=== PATIENT | female | born 1995 | race Caucasian/White ===

== ENCOUNTER 2020-01-20 22:20 | Inpatient (IN) ==
[2020-01-20] MEDS ORDERED: BUTORPHANOL 2 MG/ML VIAL IV PRN (22:32)
[2020-01-20] MEDS ORDERED: MEPERIDINE 50 MG/1 ML VIAL IV PRN (22:32)
[2020-01-20] MEDS ORDERED: LACTATED RINGERS 1,000 ML IV SCH (23:00)
[2020-01-20 23:16] LABS: Basophils % 0.3 % (0.0-0.8); Eosinophils # 0.1 10*3/uL (0.0-0.87); Eosinophils % 0.4 % (0.00-10.9); Hematocrit 35.6 VOL% (35.7-47.0); Hemoglobin 11.8 GM/DL (12.0-16.0); Immature Granulocytes % 1.5 %; Lymphocytes # 2.6 10*3/uL (1.4-4.0); Lymphocytes % 19.4 % (21.3-54.2); Mean Corpuscular HGB Conc 33.1 GM/DL (32-36); Mean Corpuscular Volume 87.3 FL (87-102); Mean Platelet Volume 10.8 FL (9.6-12.0); Monocytes % 6.9 % (1.7-12.7); Neutrophils % 71.5 % (38.7-73.9); Platelet Count 254 T/CUMM (130-400); Red Blood Count 4.08 MC/CUMM (3.8-5.5); Red Cell Distribution Width 13.5 % (9.3-17.3); White Blood Count 13.5 T/CUMM (4-12)
[2020-01-20 23:31] LABS: Alanine Aminotransferase 20 U/L (13-56); Albumin 2.4 G/DL (3.4-5.0); Alkaline Phosphatase 192 U/L (45-117); Aspartate Amino Transferase 24 U/L (0-37); Bilirubin,Total < 0.39 MG/DL (0.2-1.0); Blood Urea Nitrogen 13 MG/DL (7-18); Calcium 9.1 MG/DL (8.5-10.1); Estimated Glom Filtration Rate 150 ML/MIN; Glucose 91 MG/DL (74-106); Osmolality,Calculated 276.5 MOS/KG (273-304); Total Protein 6.7 G/DL (6.4-8.3)
[2020-01-21] MEDS: ONDANSETRON 4 MG/2 ML VIAL IV PRN ×2 (03:35→13:57)
[2020-01-21] MEDS ORDERED: FAMOTIDINE 20 MG/2 ML VIAL IV PRN (03:55)
[2020-01-21] MEDS ORDERED: CITRIC ACID/SODIUM CITRATE 30 ML UDCUP PO PRN (03:55)
[2020-01-21] MEDS ORDERED: LACTATED RINGERS 1,000 ML IV ONE (03:55)
[2020-01-21] MEDS ORDERED: ePHEDrine 50 MG/ML VIAL IV PRN (03:55)
[2020-01-21] MEDS ORDERED: NALOXONE 0.4 MG/ML VIAL IV PRN (03:57)
[2020-01-21] MEDS ORDERED: hydrOXYzine HCL 25 MG/1 ML VIAL IM PRN (03:57)
[2020-01-21] MEDS ORDERED: diphenhydrAMINE 50 MG/1 ML VIAL IV PRN ×2 (03:57)
[2020-01-21] MEDS: fentaNYL 2 MCG/ROPIV 0.2% EPID 100 ML EPIDURAL SCH ×2 (05:43→12:24)
[2020-01-21] MEDS ORDERED: OXYTOCIN/LR 20 UNIT/1,000 ML BAG IV ONE ×2 (07:26→14:12)
[2020-01-21 07:42] LABS: Bilirubin,Urine Negative (Negative); Blood, Urine Small mg/dL (Negative); Glucose,Urine (UA) Negative (Negative); Ketones,Urine Negative (Negative); Mucus,Urine Occasional /LPF (Occasional); Nitrite,Urine Negative (Negative); Protein,Urine >=500 MG/DL; RBC,Urine 20 /HPF (0-4); Squamous Epithelial Cell,Urine Occasional /HPF (0-10); Urine Appearance CLEAR (Clear); Urine Color Yellow (Yellow); Urine Specific Gravity 1.016 (1.001-1.035); Urine Urobilinogen < 2.0 EU/DL (0.2-1.0); WBC,Urine 1 /HPF (0-6)
[2020-01-21] MEDS ORDERED: OXYTOCIN/LR 20 UNIT/1,000 ML BAG IV SCH (08:00)
[2020-01-21] MEDS ORDERED: miSOPROStoL 200 MCG TABLET ONE (09:49)
[2020-01-21] MEDS ORDERED: METHYLERGONOVINE 0.2 MG/1 ML AMP ONE (09:50)
[2020-01-21] MEDS ORDERED: CARBOPROST TROMETHAMINE 250 MCG/ML AMP IM ONE ×2 (09:50→13:42)
[2020-01-21] MEDS ORDERED: TRANEXAMIC ACID 1,000 MG/10 ML VIAL ONE (09:50)
[2020-01-21] MEDS ORDERED: SODIUM CHLORIDE 0.9% 0 ML IV ONE (09:51)
[2020-01-21] MEDS ORDERED: LIDOCAINE 1% 50 ML VIAL ONE ×2 (09:51→16:53)
[2020-01-21] MEDS ORDERED: miSOPROStoL 200 MCG TABLET RECTAL ONE (13:30)
[2020-01-21 13:34] LABS: Cord Arterial Blood HCO3 20.7 MMOL/L
[2020-01-21 13:36] LABS: Cord Venous Blood HCO3 20.9 MMOL/L; Cord Venous Blood PCO2 53.1 MMHG
[2020-01-21] MEDS ORDERED: IBUPROFEN 800 MG TABLET PO ONE (13:55)
[2020-01-21] MEDS ORDERED: LANOLIN 50% CREAM 0.3 OZ TUBE TOP PRN (14:12)
[2020-01-21] MEDS ORDERED: ACETAMINOPHEN 325 MG TABLET PO PRN (14:12)
[2020-01-21] MEDS ORDERED: MEASLES/MUMPS/RUBELLA VACCINE 0.5 ML VIAL SUBCUT ONE (14:12)
[2020-01-21] MEDS ORDERED: BISACODYL 10 MG SUPP RECTAL PRN (14:12)
[2020-01-21] MEDS ORDERED: DIPH/TET/ACEL PERT BOOSTER VACCINE 0.5 ML VIAL IM ONE (14:12)
[2020-01-21] MEDS ORDERED: RHO(D) IMMUNE GLOBULIN 300 MCG SYRINGE IM ONE (14:12)
[2020-01-21] MEDS ORDERED: oxyCODONE/ACETAMINOPHEN 5-325 MG TABLET PO PRN (14:12)
[2020-01-21] MEDS ORDERED: HYDROCORTISONE 2.5% RECTAL CREAM 30 GM TUBE TOP PRN (14:12)
[2020-01-21] MEDS ORDERED: BENZOCAINE 20%/MENTHOL 0.5% SPRAY 56 GM CAN TOP PRN (14:12)
[2020-01-21] MEDS ORDERED: ONDANSETRON 4 MG/2 ML VIAL IV PRN (14:12)
[2020-01-21] MEDS ORDERED: WITCH HAZEL PADS 100/JAR TOP PRN (14:12)
[2020-01-21] MEDS ORDERED: HETASTARCH 6% 500 ML IV ONE (15:57)
[2020-01-21] MEDS: DOCUSATE SODIUM 100 MG CAPSULE PO SCH (21:00)
[2020-01-21] MEDS: IBUPROFEN 800 MG TABLET PO PRN (22:23)
[2020-01-22] MEDS: oxyCODONE/ACETAMINOPHEN 5-325 MG TABLET PO PRN ×4 (04:44→22:19)
[2020-01-22 06:02] LABS: Basophils % 0.2 % (0.0-0.8); Eosinophils # 0.1 10*3/uL (0.0-0.87); Hemoglobin 6.7 GM/DL (12.0-16.0); Immature Granulocytes % 0.8 %; Immature Granulocytes Absolute 0.11 #; Lymphocytes # 2.7 10*3/uL (1.4-4.0); Lymphocytes % 20.7 % (21.3-54.2); Mean Corpuscular HGB Conc 31.9 GM/DL (32-36); Mean Corpuscular Volume 88.2 FL (87-102); Mean Platelet Volume 10.8 FL (9.6-12.0); Monocytes % 6.7 % (1.7-12.7); Neutrophils % 70.6 % (38.7-73.9); Platelet Count 189 T/CUMM (130-400); Red Blood Count 2.38 MC/CUMM (3.8-5.5)
[2020-01-22] MEDS: FERROUS SULFATE 325 MG TABLET PO SCH ×2 (08:17→21:02)
[2020-01-22] MEDS: DOCUSATE SODIUM 100 MG CAPSULE PO SCH ×2 (08:17→21:02)
[2020-01-22] MEDS: IBUPROFEN 800 MG TABLET PO PRN ×3 (09:10→21:08)
[2020-01-23] MEDS: IBUPROFEN 800 MG TABLET PO PRN (06:32)
[2020-01-23 08:44] VITALS: BP 132/79
[2020-01-23] MEDS: oxyCODONE/ACETAMINOPHEN 5-325 MG TABLET PO PRN (08:49)
[2020-01-23] MEDS: FERROUS SULFATE 325 MG TABLET PO SCH (08:49)
[2020-01-23] MEDS: DOCUSATE SODIUM 100 MG CAPSULE PO SCH (08:49)
== END 2020-01-23 12:35 | disposition home or self-care (01) | DRG 807 ==
LOC: N.LDOUT 22:20 → N.LD 22:22 → N.OB 01-21 19:25
PROVIDERS: ADMIT Specialist; ATTEND Specialist